=== PATIENT | male | born 1980 | race Caucasian/White ===

== ENCOUNTER 2023-10-18 12:54 | Emergency (ER) | payer OTHER ==
--- NOTE | 2023-10-18 13:00 | ERPHSYRPT ---
- History of Present Illness Time Seen by Provider: 10/18/23 13:00 Source: patient Exam Limitations: no limitations Physician History: This is a morbidly obese white male patient of Dr. Fonseca who will be seeing nurse practitioner Ananda in the clinic on 10/22/2023. Patient, in the last week, has noticed increased urine output, increased thirst and dry mouth as well as fatigue and intermittent episodes of blurred vision. He measured his blood sugar level from the monitor his diabetic spouse has and it has been running 300-450. His blood sugar today on arrival to the emergency room is measured at 335. He does state he does not feel as bad today as he has been in the last week. He has had no prior visits documented to this emergency department. He denies chest pain. He denies nausea vomiting diarrhea. He has no shortness of breath. Patient states he does have a history of hypertension and is supposed to be on some blood pressure medication but he has not been taking any medications. Timing/Duration: week(s) (1), other (Persistent symptoms) Severity: mild Associated Symptoms: other ([place]) Allergies/Adverse Reactions: cephalexin [From Keflex] Allergy (Verified 10/18/23 13:08) Penicillins Allergy (Verified 10/18/23 13:08) Home Medications: No Reportable Medications [No Reported Medications] 10/18/23 [History] Travel Risk - International Travel Have you traveled outside of the country in past 3 weeks: No - Emerging Infectious Disease Are you exhibiting symptoms associated with any current EIDs: No - Review of Systems Constitutional: Fatigue Eyes: No Symptoms Ears, Nose, & Throat: No Symptoms Respiratory: No Symptoms Cardiac: No Symptoms Abdominal/Gastrointestinal: No Symptoms Genitourinary Symptoms: Frequency Musculoskeletal: No Symptoms Skin: No Symptoms Neurological: Other (Remittent blurred vision) Psychological: No Symptoms Endocrine: Polyuria, Polydipsia Hematologic/Lymphatic: No Symptoms Immunological/Allergic: No Symptoms All Other Systems: Reviewed and Negative - Past Medical History Pertinent Past Medical History: Yes - Nursing Vital Signs Nursing Vital Signs: Initial Vital Signs Temperature 97.9 F 10/18/23 13:08 Pulse Rate 91 H 10/18/23 13:08 Respiratory Rate 18 10/18/23 13:08 Blood Pressure 148/98 10/18/23 13:08 O2 Sat by Pulse Oximetry 97 10/18/23 13:08 Pain Scale Pain Intensity 0 - Physical Exam General Appearance: no apparent distress, alert, anxiety, obese Eye Exam: PERRL/EOMI, eyes nml inspection Ears, Nose, Throat Exam: normal ENT inspection, moist mucous membranes Neck Exam: normal inspection, non-tender, supple, full range of motion Respiratory Exam: normal breath sounds, lungs clear, airway intact, No chest tenderness, No respiratory distress Cardiovascular Exam: regular rate/rhythm, normal heart sounds, normal peripheral pulses Gastrointestinal/Abdomen Exam: soft, normal bowel sounds, No tenderness Rectal Exam: not done Back Exam: normal inspection, normal range of motion, No CVA tenderness, No vertebral tenderness Extremity Exam: normal inspection, normal range of motion, pelvis stable Neurologic Exam: alert, oriented x 3, cooperative, 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, nml cerebellar function, nml station & gait, sensation nml Skin Exam: normal color, warm, dry Lymphatic Exam: No adenopathy SpO2 Interpretation: normal O2 Delivery: Room Air - Course Nursing assessment & vital signs reviewed: Yes Ordered Tests: Active Orders 24 hr Category Date Time Status IV Insertion STAT Care 10/18/23 13:19 Active Pulse Oximetry (ED) STAT Care 10/18/23 13:19 Active CBC W DIFF Stat Lab 10/18/23 13:30 Completed CMP Stat Lab 10/18/23 13:30 Completed CULTURE,URINE Stat Lab 10/18/23 13:22 Received ETHYL ALCOHOL Stat Lab 10/18/23 13:30 Completed Lactic Acid Urgent Lab 10/18/23 13:19 Completed MAGNESIUM Stat Lab 10/18/23 13:30 Completed POCT GLUCOSE Stat Lab 10/18/23 13:04 Completed UA W/RFX UR CULTURE Stat Lab 10/18/23 13:22 Completed Medication Summary Generic Name Dose Route Start Last Admin Trade Name Freq PRN Reason Stop Dose Admin Sodium Chloride 500 mls @ 500 mls/hr 10/18/23 15:14 Sodium Chloride 0.9% 500 Ml IV 10/18/23 16:13 .Q1H ONE Discontinued Medications Generic Name Dose Route Start Last Admin Trade Name Freq PRN Reason Stop Dose Admin Sodium Chloride 1,000 mls @ 999 mls/hr 10/18/23 13:19 10/18/23 14:39 Sodium Chloride 0.9% 1000 Ml IV 10/18/23 14:19 Infused .Q1H1M STA Infusion Sodium Chloride Confirm 10/18/23 13:27 Sodium Chloride 0.9% 1000 Ml Administered 10/18/23 13:28 Dose 1,000 mls @ ud .ROUTE .STK-MED ONE Insulin Human Regular 4 unit 10/18/23 13:25 10/18/23 13:34 Insulin Regular, Human 1 Unit IV 10/18/23 13:26 4 unit STAT ONE Administration Insulin Human Regular Confirm 10/18/23 13:31 Insulin Regular, Human 1 Unit Administered 10/18/23 13:32 Dose 4 unit .ROUTE .STK-MED ONE Ondansetron HCl 4 mg 10/18/23 13:19 10/18/23 13:35 Ondansetron Hcl 4 Mg/2 Ml Vial IV 10/18/23 13:20 4 mg STAT ONE Administration Ondansetron HCl Confirm 10/18/23 13:27 Ondansetron Hcl 4 Mg/2 Ml Vial Administered 10/18/23 13:28 Dose 4 mg .ROUTE .STK-MED ONE Lab/Rad Data: Laboratory Result Diagrams 10/18/23 13:30 10/18/23 13:30 Laboratory Results 10/18/23 10/18/23 10/18/23 Range/Units 13:30 13:30 13:30 WBC 7.8 (4.0-10.5) x10^3/uL RBC 5.06 (4.1-5.6) x10^6/uL Hgb 16.7 (12.5-18.0) g/dL Hct 45.6 (42-50) % MCV 90.1 (78-100) fL MCH 33.0 H (26-32) pg MCHC 36.6 H (32-36) g/dL RDW 11.9 (11.5-14.0) % Plt Count 165 (150-450) x10^3/uL MPV 9.9 (7.5-11.0) fL Gran % 57.2 (36.0-66.0) % Immature Gran % (Auto) 0.3 (0.00-0.4) % Nucleat RBC Rel Count 0.0 (0.00-0.1) % Eos # (Auto) 0.24 (0-0.5) x10^3/uL Immature Gran # (Auto) 0.02 (0.00-0.03) x10^3u/L Absolute Lymphs (auto) 2.53 (1.0-4.6) x10^3/uL Absolute Monos (auto) 0.49 (0.0-1.3) x10^3/uL Absolute Nucleated RBC 0.00 (0.00-0.01) x10^3u/L Lymphocytes % 32.3 (24.0-44.0) % Monocytes % 6.3 (0.0-12.0) % Eosinophils % 3.1 (0.00-5.0) % Basophils % 0.8 (0.0-0.4) % Absolute Granulocytes 4.49 (1.4-6.9) x10^3/uL Basophils # 0.06 (0-0.4) x10^3/uL Sodium 134 L (135-145) mmol/L Potassium 4.0 (3.5-5.1) mmol/L Chloride 102 (98-107) mmol/L Carbon Dioxide 24 (22-30) mmol/L Anion Gap 11.8 (5-15) MEQ/L BUN 13 (9-20) mg/dL Creatinine 0.92 (0.66-1.25) mg/dL Estimated GFR 106.5 ML/MIN Glucose 342 H (74-106) mg/dL POC Glucometer (74 to 106) mg/dL Hemoglobin A1c 10.47 H (4.5-6.0) % Lactic Acid (0.4-2.0) Calcium 9.0 (8.4-10.2) mg/dL Magnesium 1.9 (1.6-2.3) mg/dL Total Bilirubin 1.30 (0.2-1.3) mg/dL AST 90 H (17-59) U/L ALT 66 H (0-50) U/L Alkaline Phosphatase 100 (38-126) U/L Serum Total Protein 7.3 (6.3-8.2) g/dL Albumin 4.0 (3.5-5.0) g/dL Urine Color (Yellow) Urine Appearance (Clear) Urine pH (4.6-8.0) Ur Specific [place] (1.005-1.030) Urine Protein (Negative) Urine Glucose (UA) (Negative) mg/dL Urine Ketones (Negative) Urine Blood (Negative) Urine Nitrite (Negative) Urine Bilirubin (Negative) Urine Urobilinogen (0.2) mg/dL Ur Leukocyte Esterase (Negative) U Hyaline Cast (Auto) (0-2) /LPF Urine Microscopic RBC (0-5) /HPF Urine Microscopic WBC (0-5) /HPF Ur Epithelial Cells (None Seen) /HPF Urine Bacteria (None Seen) /HPF Urine Culture Reflexed (NO) Ethyl Alcohol < 10 (0-10) mg/dL 10/18/23 10/18/23 10/18/23 Range/Units 13:22 13:19 13:04 WBC (4.0-10.5) x10^3/uL RBC (4.1-5.6) x10^6/uL Hgb (12.5-18.0) g/dL Hct (42-50) % MCV (78-100) fL MCH (26-32) pg MCHC (32-36) g/dL RDW (11.5-14.0) % Plt Count (150-450) x10^3/uL MPV (7.5-11.0) fL Gran % (36.0-66.0) % Immature Gran % (Auto) (0.00-0.4) % Nucleat RBC Rel Count (0.00-0.1) % Eos # (Auto) (0-0.5) x10^3/uL Immature Gran # (Auto) (0.00-0.03) x10^3u/L Absolute Lymphs (auto) (1.0-4.6) x10^3/uL Absolute Monos (auto) (0.0-1.3) x10^3/uL Absolute Nucleated RBC (0.00-0.01) x10^3u/L Lymphocytes % (24.0-44.0) % Monocytes % (0.0-12.0) % Eosinophils % (0.00-5.0) % Basophils % (0.0-0.4) % Absolute Granulocytes (1.4-6.9) x10^3/uL Basophils # (0-0.4) x10^3/uL Sodium (135-145) mmol/L Potassium (3.5-5.1) mmol/L Chloride (98-107) mmol/L Carbon Dioxide (22-30) mmol/L Anion Gap (5-15) MEQ/L BUN (9-20) mg/dL Creatinine (0.66-1.25) mg/dL Estimated GFR ML/MIN Glucose (74-106) mg/dL POC Glucometer 335 H (74 to 106) mg/dL Hemoglobin A1c (4.5-6.0) % Lactic Acid 1.8 (0.4-2.0) Calcium (8.4-10.2) mg/dL Magnesium (1.6-2.3) mg/dL Total Bilirubin (0.2-1.3) mg/dL AST (17-59) U/L ALT (0-50) U/L Alkaline Phosphatase (38-126) U/L Serum Total Protein (6.3-8.2) g/dL Albumin (3.5-5.0) g/dL Urine Color Yellow (Yellow) Urine Appearance Clear (Clear) Urine pH 5.5 (4.6-8.0) Ur Specific [place] >=1.030 A (1.005-1.030) Urine Protein 30 (Negative) Urine Glucose (UA) >=1000 A (Negative) mg/dL Urine Ketones Trace A (Negative) Urine Blood Moderate A (Negative) Urine Nitrite Negative (Negative) Urine Bilirubin Negative (Negative) Urine Urobilinogen 1.0 A (0.2) mg/dL Ur Leukocyte Esterase Negative (Negative) U Hyaline Cast (Auto) NONE SEEN (0-2) /LPF Urine Microscopic RBC 0-2 (0-5) /HPF Urine Microscopic WBC 3-5 (0-5) /HPF Ur Epithelial Cells None Seen (None Seen) /HPF Urine Bacteria None Seen (None Seen) /HPF Urine Culture Reflexed YES (NO) Ethyl Alcohol (0-10) mg/dL - Progress Progress: improved, re-examined Progress Note: 10/18/23 13:27 My medical decision making and the assignment of moderate complexity to this patient's medical issue today is based on review of the patient's past medical history, review the patient medication list, review patient drug allergy list, history present illness and physical findings on examination. The workup in this patient includes placement of intravenous line, infusion of normal saline solution as well as infusion of Zofran intravenously, CBC, CMP, hemoglobin A1c, magnesium level, urinalysis, alcohol level, and lactic acid level. Differential diagnosis includes hyperglycemia, diabetic ketoacidosis 10/18/23 15:15 I interpreted the patient's laboratory data results. The patient does have an elevated hemoglobin A1c, as well as hyperglycemia. We will shortly be repeating the blood sugar level after the patient has received his intravenous insulin. Patient does have trace ketones in his urine and we will provide him with an additional 500 mL of normal saline. In addition, it is noted that the patient has a normal CO2 and a normal anion gap. This patient, I feel has at the worst very mild DKA but more likely significant hyperglycemia. We will discharge him to home with instructions for him to continue monitoring his blood sugar and to modify his diet to a diabetic 1. Counseled pt/family regarding: lab results, diagnosis, need for follow-up Medical Desision Making - Diagnostic Testing Diagnostic test were ordered, analyzed, and reviewed by me: Yes - Risk of complications Low Risk: Low risk of morbidity from additional dx testing or treatment - Departure Departure Disposition: Home Clinical Impression: Hyperglycemia Condition: Stable Critical Care Time: No Referrals: LENARD FONSECA MD [Primary Care Provider] - Follow up/PCP as directed Additional Instructions: Drink plenty of clear liquids. Avoid sugar containing liquids and foods. Follow a diabetic diet. We will provide you with instructions. Keep your appointment that you have scheduled with your outpatient provider on 10/22/2023. Return to the emergency department if your symptoms worsen.
[2023-10-18 13:16] VITALS: TEMP 97.9
[2023-10-18] MEDS ORDERED: Zofran 4 MG/2 ML VIAL ONE (13:27)
[2023-10-18] MEDS ORDERED: Sodium Chloride 0.9% 1000 ML 1,000 ML ONE (13:27)
[2023-10-18] MEDS ORDERED: HUMULIN R ONE ×2 (13:31→15:41)
[2023-10-18] MEDS: Sodium Chloride 0.9% 1000 ML 1,000 ML IV STA (13:32)
[2023-10-18] MEDS: HUMULIN R IV ONE ×2 (13:34→15:43)
[2023-10-18] MEDS: Zofran 4 MG/2 ML VIAL IV ONE (13:35)
[2023-10-18 13:37] LABS: Absolute Neutrophil Ct (ANC) 4.49 x10^3/uL (1.4-6.9); BASOPHIL % 0.8 % (0.0-0.4); Basophil (Absolute #) 0.06 x10^3/uL (0-0.4); Eosinophil % 3.1 % (0.00-5.0); Eosinophil (Absolute #) 0.24 x10^3/uL (0-0.5); Hematocrit 45.6 % (42-50); Hemoglobin 16.7 g/dL (12.5-18.0); IMMATURE GRAN # 0.02 x10^3u/L (0.00-0.03); IMMATURE GRAN % 0.3 % (0.00-0.4); Lymphocyte (Absolute #) 2.53 x10^3/uL (1.0-4.6); Lymphocytes % 32.3 % (24.0-44.0); Mean Cell Volume 90.1 fL (78-100); Mean Corpuscular Hgb Concent. 36.6 g/dL (32-36); Mean Platelet Volume 9.9 fL (7.5-11.0); Monocyte (Absolute #) 0.49 x10^3/uL (0.0-1.3); Monocytes % 6.3 % (0.0-12.0); Neutrophil % 57.2 % (36.0-66.0); Platelet Count 165 x10^3/uL (150-450); Red Blood Count 5.06 x10^6/uL (4.1-5.6); Red Cell Distribution Width 11.9 % (11.5-14.0); White Blood Count 7.8 x10^3/uL (4.0-10.5)
[2023-10-18 13:51] LABS: ALKALINE PHOSPHATASE 100 U/L (38-126); ANION GAP 11.8 MEQ/L (5-15); BLOOD UREA NITROGEN 13 mg/dL (9-20); CHLORIDE 102 mmol/L (98-107); Carbon Dioxide 24 mmol/L (22-30); Creatinine 1 0.92 mg/dL (0.66-1.25); EST GLOMERULAR FILTRATION RATE 106.5 ML/MIN; ETHYL ALCOHOL < 10 mg/dL (0-10); Glucose 342 mg/dL (74-106); MAGNESIUM 1.9 mg/dL (1.6-2.3); SGOT/AST 90 U/L (17-59); SGPT/ALT 66 U/L (0-50); SODIUM 134 mmol/L (135-145); Total Protein 7.3 g/dL (6.3-8.2)
[2023-10-18 13:58] LABS: Appearance Clear (Clear); Bacteria None Seen /HPF (None Seen); Bilirubin Negative (Negative); Blood Moderate (Negative); Epithelial Cells None Seen /HPF (None Seen); Glucose, Urine >=1000 mg/dL (Negative); Hyaline Casts NONE SEEN /LPF (0-2); Ketones Trace (Negative); Leukocyte Esterase Negative (Negative); Nitrite Negative (Negative); Ph 5.5 (4.6-8.0); Protein,Urine Dip 30 (Negative); Specific Gravity >=1.030 (1.005-1.030)
[2023-10-18 13:59] LABS: ADD URINE CULTURE? YES (NO); RBC 0-2 /HPF (0-5)
[2023-10-18] MEDS ORDERED: Sodium Chloride 0.9% 500 ML 500 ML IV ONE (15:23)
[2023-10-18] MEDS: Sodium Chloride 0.9% 500 ML 500 ML IV ONE (15:27)
[2023-10-18 16:36] VITALS: BP 129/84; PULSE 71; RESP 20; O2SAT 94
== END 2023-10-18 16:43 | disposition home or self-care (01) ==
LOC: ED 12:54
DX: R73.9 Hyperglycemia, unspecified (principal); R63.1 Polydipsia; R68.2 Dry mouth, unspecified; R53.83 Other fatigue; I10 Essential (primary) hypertension
CPT/HCPCS: 36000; 36415; 80053; 81001; 82077; 82947; 83036; 83605; 83735; 85025; 87086; 94760; 96360; 96361; 96374; 96375; 96376; 99284; J1815; J2405